=== PATIENT | male | born 1950 | race Caucasian/White ===

== ENCOUNTER → 2023-09-22 11:04 | Outpatient (CLI) | payer MEDICARE, MEDICAID, SELFPAY | PROVIDERS: Family Provider Specialist; PCP Specialist; Referring Provider Internal Medicine Pulmonary Disease; Visit Provider Internal Medicine Pulmonary Disease | DX: R06.02 Shortness of breath (principal); Z87.891 Personal history of nicotine dependence | CPT/HCPCS: 94060; 94618; 94726; 94729 ==

== ENCOUNTER → 2023-11-26 10:35 | Outpatient (CLI) | payer OTHER, MEDICAID, SELFPAY ==
--- NOTE | 2023-11-27 02:34 | DI.NM.S_ITS ---
DATE OF SERVICE: 11/26/2023 PROCEDURE: Pharmacological perfusion study. INDICATIONS: Shortness of breath with underlying hypertension, diabetes mellitus. RADIOPHARMACEUTICAL: 25.8 millicurie technetium-99m Myoview IV was injected at stress and 11.5 millicurie technetium-99m Myoview IV was injected at rest. CARDIAC STRESS: The patient underwent IV Lexiscan perfusion study under the supervision of an attending staff. The patient underwent IV Lexiscan perfusion study as per standard protocol. Remained hemodynamically stable. Baseline blood pressure 140/78. Baseline EKG, sinus rhythm. During stress, no convincing ischemic changes seen. No significant arrhythmias. Had minimal dyspnea. No chest discomfort. RAW DATA: There is significant subdiaphragmatic activity. Gut shadow encroaching the inferior border of the heart. The patient's weight is 195 pounds. GATED STUDY: Stress LV ejection fraction 62% without any obvious wall motion abnormalities. Resting end-diastolic volume 147 mL. TID ratio 0.90, which is within normal limits. Lung/heart ratio 0.46, which is mildly elevated. MYOCARDIAL PERFUSION SCAN: Please note this patient does not have any stress prone images. Resting supine and stress supine images were compared to each other. There appears to be predominantly fixed, large size, moderate to severely decreased perfusion of inferior wall extending into the inferior apex. In addition to that, resting supine images also had a small size, mildly decreased perfusion of distal anterior wall and distal anteroseptum which was not seen during stress supine images. Resting images worse than stress supine images. There are no stress prone images. CONCLUSION: 1. No obvious reversible ischemia. 2. Predominantly fixed, large size, moderate to severely decreased perfusion of inferior wall extending into the inferior apex. During rest, there is an additional small size decreased perfusion of distal anterior wall and distal anteroseptum. Rest images worse than stress supine images. There are no stress prone images. During the raw images evaluation, there is a significantly increased subdiaphragmatic activity and a gut shadow encroaching the inferior border of the heart. On gated study, preserved left ventricular function and inferior wall is moving well. Hence, most likely this is due to tissue attenuation artifact, however one cannot rule inferior wall and inferoapical infarction as well. Correlate clinically. Aric Abel PREVENTIVE MEDICINE PHYSICIAN/fn/kt doc#: [id number]/job#: [id number] dd: 11/26/2023 16:57:00 dt: 11/27/2023 02:27:00 DICTATING MD/COPIES TO: Shira Paredes MD COPIES MNE: JEROD;
== END ==
PROVIDERS: PCP Specialist; Referring Provider Internal Medicine Cardiovascular Disease; Visit Provider Internal Medicine Cardiovascular Disease
DX: R06.02 Shortness of breath (principal); R06.09 Other forms of dyspnea; E11.22 Type 2 diabetes mellitus with diabetic chronic kidney disease; N18.5 Chronic kidney disease, stage 5; Z79.4 Long term (current) use of insulin
CPT/HCPCS: 78452; 93017; A9502; J2785

== ENCOUNTER → 2024-02-12 11:34 | Outpatient (CLI) | payer OTHER, MEDICAID, SELFPAY ==
--- NOTE | 2024-02-12 11:35 | DI.MRI.S_ITS ---
PROCEDURE: MR LUMBAR SPINE WO CON INDICATIONS: Multilevel spinal stenosis with neurogenic claudication TECHNIQUE: Noncontrast sagittal T1 spin echo and T2 fast echo, sagittal STIR, and T2 fast spin echo through the lumbar spine. In cases with scoliosis, additional coronal T2 fast spin echo may be performed. COMPARISON: None. FINDINGS: Image quality: Excellent. Alignment and Curvature: There is normal bony alignment. Bone Marrow: Marrow is of normal overall signal. No acute vertebral body compression fractures. Spinal Cord: Conus medullaris terminates at the L1 level. Visualized cord demonstrates normal signal and size. Paraspinous Soft Tissues: No paravertebral masses. T12-L1: Mild disc desiccation and height loss. Moderate facet ligamentum flavum hypertrophy. No canal stenosis. Mild bilateral foraminal stenosis. L1-L2: Severe disc desiccation and height loss. Moderate facet ligamentum flavum hypertrophy. Severe canal stenosis. No foraminal narrowing. L2-L3: Mild disc desiccation and height loss. Broad-based disc bulge. Severe facet ligamentum flavum hypertrophy. Severe canal stenosis. Mild right foraminal narrowing. No left neural foraminal stenosis. L3-L4: Mild disc desiccation and height loss. Severe facet ligamentum flavum hypertrophy. Severe canal stenosis. The canal measures 3 mm at the narrowest AP diameter. Mild bilateral foraminal stenosis. L4-L5: Mild disc desiccation and height loss. Severe facet ligamentum flavum hypertrophy. Severe canal stenosis. Mild bilateral neural foraminal stenosis. L5-S1: Moderate disc desiccation and height loss. Moderate facet ligamentum flavum hypertrophy. Broad-based disc bulge. Moderate canal stenosis. Mild bilateral foraminal narrowing. IMPRESSION: 1. Multilevel severe facet ligamentum flavum hypertrophy and broad-based disc bulges with resultant severe canal stenosis at L1-2, L2-3, L3-4, and L4-5. Of note, the canal measures only 3 mm at the narrowest AP diameter at L3-4. 2. Multilevel mild bilateral foraminal stenosis. Dictated by: Zee Troncoso M.D. on 02/12/2024 at 14:04 Approved by: Zee Troncoso M.D. on 02/12/2024 at 14:13
== END ==
LOC: MRI 11:35
PROVIDERS: PCP Specialist; Referring Provider Physical Medicine & Rehabilitation; Visit Provider Physical Medicine & Rehabilitation
DX: M47.26 Other spondylosis with radiculopathy, lumbar region (principal); M47.27 Other spondylosis with radiculopathy, lumbosacral region; M51.16 Intervertebral disc disorders with radiculopathy, lumbar region; M51.17 Intervertebral disc disorders with radiculopathy, lumbosacral region; M48.061 Spinal stenosis, lumbar region without neurogenic claudication; M48.07 Spinal stenosis, lumbosacral region
CPT/HCPCS: 72148

== ENCOUNTER 2024-03-09 14:49 | Outpatient (CLI) | payer OTHER, MEDICAID, SELFPAY ==
[2024-03-09] VITALS (8 sets, daily range): BP systolic 136–150; BP diastolic 64–85; PULSE 79–800; RESP 14–22; TEMP 36.9; O2SAT 96–99
--- NOTE | 2024-03-09 15:30 | DI.RAD.S_ITS ---
PROCEDURE: PAIN L INTERLAMINAR/CAUDAL INJ INDICATIONS: L5-S1 translaminar ERICA COMPARISON: [facility], MR, MR LUMBAR SPINE WO CON, 02/12/2024, 12:03. [facility], RG, XR L-SPINE 4-6V, 01/31/2022, 10:11. FINDINGS: Fluoroscopic spot filming was performed to verify placement of spinal needles at the L5-S1 level(s), as labeled on the films. Appropriate location(s) of the needle tip(s) was confirmed by injection of iodinated contrast. IMPRESSION: Fluoroscopy for pain management. Dictated by: Mara Stoner M.D. on 03/09/2024 at 17:22 Approved by: Mara Stoner M.D. on 03/09/2024 at 17:23
[2024-03-09] MEDS: MIDAZOLAM 2 MG/2 ML VIAL IV (15:55)
[2024-03-09] MEDS: BUPIVACAINE 0.25% (PF) VIAL 2 ML INJ (15:59)
[2024-03-09] MEDS: iopamidoL 15 ML VIAL 3 ML INJ (15:59)
[2024-03-09] MEDS: BETAMETHASONE 30 MG/5 ML MDV 6 MG INJ (15:59)
[2024-03-09] MEDS: DEXAMETHASONE 10 MG/ML VIAL INJ (15:59)
--- NOTE | 2024-03-09 16:08 | P.PCN_ITS ---
Date/Time/Diagnoses Date of procedure: 03/09/24 Time of procedure: 16:08 Pre-procedure diagnosis: 1. HNP WITH RADICULAR FEATURES, 2. MULTILEVEL CENTRAL STENOSIS, Post-procedure diagnosis: same Procedure Notes Procedure: 1. FLUOROSCOPICALLY GUIDED CONTRAST CONTROLLED INTERLAMINAR EPIDURAL STEROID INJECTION - L5/S1 Indications: Aric is referred by Dr. Gonzalez for treatment of Bilateral Foraminal Stenosis L>R LE symptoms. Physician: John James Total Fluoroscopy time (seconds): 5 Total sedation minutes: 10 Complications: none Procedure in detail & Post-procedure care: FINDINGS Multilevel Central Spinal Stenosis with Nerve Root Compression DESCRIPTION OF PROCEDURE Fluoroscopically guided, contrast-controlled L5/S1 translaminar epidural steroid injection. Following review of allergy and review of potential side effects and complications, including, but not necessarily limited to, infection, allergic reaction, local tissue breakdown, temporary as well as permanent nerve injury, paralysis, stroke and possible , the patient indicated that the patient understood and agreed to proceed. An informed consent document was signed by the patient, witnessed by a nurse, and placed in the patient's chart. Additionally, other treatment options including modalities, medications, and physical therapy were reviewed with the patient. After review of previous anaesthesic history and IV conscious sedation the patient was deemed safe to proceed with today?s procedure with IV conscious sedation as ASA class II designation. Safety time-out was performed to confirm patient ID, procedure to be performed and site of procedure. IV sedation was accomplished with a combination of 2mg of Versed administered by the RN after DO order, titrated to patient comfort during the course of the procedure while the patient remained responsive to all verbal commands. In the prone position, following sterile prep and drape of the lumbar region, the L5/S1 translaminar space was identified fluoroscopically. The skin was anesthetized via a 25-gauge, 1.5-inch needle with 1% lidocaine solution. At this point, a 22-gauge short bevel spinal needle was atraumatically introduced and advanced under fluoroscopic guidance into the region of the L5/S1 translaminar space. Depth was confirmed on lateral view. Radiological data, including multiple fluoroscopic views of the lumbar spine, reveal a spinal needle at the L5/S1 translaminar space. Lateral views then show placement of the needle in the epidural space. Subsequent views show contrast material flowing superiorly and inferiorly in the epidural space. No vascular or intrathecal uptake is observed. At this point, using loss of resistance technique with saline and air, the epidural space was entered. This was confirmed following negative aspiration with injection of approximately 1.5cc of Isovue 200, showing excellent epidural flow without vascular or intrathecal uptake. At this point, 1 cc of 1% lidocain e solution combined with 2cc or 10mg of dexamethasone and 6mg of betamethasone was injected without incident. The patent tolerated the procedure without signs of symptoms of complications prior to transfer to the recovery area for further monitoring. The patient was then transferred to the recovery area where they were observed for an appropriate period of time after the injection. The patient reported a VAS score of 6 prior to the procedure and a post-procedure VAS of 0. POST OP INSTRUCTIONS The patient was provided a Pain Log to continue to record their response to the target-specific procedure prior to follow-up visit with their referring physician. Additionally, specific post-injection care instructions and a contact number to our office were provided if concerns arise regarding possible complications associated with the procedure are suspected.
== END 2024-03-09 16:28 | disposition home or self-care (01) ==
PROVIDERS: PCP Specialist; Referring Provider Physical Medicine & Rehabilitation; Visit Provider Physical Medicine & Rehabilitation
DX: M51.17 Intervertebral disc disorders with radiculopathy, lumbosacral region (principal); M48.07 Spinal stenosis, lumbosacral region
CPT/HCPCS: 62323; 99152; J0702; J1100; J2250; J3490

== ENCOUNTER 2024-05-27 12:28 | Outpatient (CLI) | payer OTHER, MEDICAID, SELFPAY ==
[2024-05-27 13:00] VITALS: BP 134/75; PULSE 91; RESP 16; TEMP 37.1; O2SAT 96
--- NOTE | 2024-05-27 13:00 | DI.RAD.S_ITS ---
PROCEDURE: PAIN L/S FACET INJ/BLK 1ST OZIEL INDICATIONS: Bilateral L3-L4 and L5 medial branch block LA COMPARISON: None. FINDINGS: Fluoroscopic spot filming was performed to verify placement of spinal needles at the bilateral L3-L5 level(s), as labeled on the films. Appropriate location(s) of the needle tip(s) was confirmed by injection of iodinated contrast. IMPRESSION: Intraoperative guidance provided. Dictated by: Alin Monreal M.D. on 05/27/2024 at 18:21 Approved by: Alin Monreal M.D. on 05/27/2024 at 18:22
[2024-05-27 13:35] VITALS: BP 162/75; PULSE 94; RESP 17; O2SAT 98
[2024-05-27 13:40] VITALS: BP 149/82; PULSE 85; RESP 15; O2SAT 99
[2024-05-27 13:45] VITALS: BP 173/92; PULSE 93; RESP 19; O2SAT 98
[2024-05-27] MEDS: iopamidoL 15 ML VIAL 3 ML INJ (13:47)
[2024-05-27] MEDS: LIDOCAINE 1% 20 ML 5 ML INJ (13:48)
[2024-05-27] MEDS: BUPIVACAINE 0.5% (PF) 10 ML VIAL 5 ML INJ (13:48)
[2024-05-27 13:50] VITALS: BP 159/89; PULSE 94; RESP 19; O2SAT 98
--- NOTE | 2024-05-27 13:56 | P.PCN_ITS ---
Date/Time/Diagnoses Date of procedure: 05/27/24 Time of procedure: 13:56 Pre-procedure diagnosis: FACET ARTHROPATHY Post-procedure diagnosis: same Procedure Notes Procedure: 1. BILATERAL L3, L4 AND L5 DIAGNOSTIC MB BLOCKS Indications: Aric is referred by Dr. Gonzalez for treatment of Bilateral Axial LBP. Physician: John James Total Fluoroscopy time (seconds): 8 Total sedation minutes: 0 Complications: none Procedure in detail & Post-procedure care: DESCRIPTION OF PROCEDURE Fluoroscopically guided, contrast-controlled bilateral L3, L4 and L5 medial branch blocks with 0.5cc of 0.5% Marcaine. Following review of allergy and review of potential side effects and complications, including, but not necessarily limited to, infection, allergic reaction, local tissue breakdown, nerve injury, paralysis, stroke and possible , the patient indicated that the patient understood and agreed to proceed. An informed consent document was signed by the patient, witnessed by a nurse, and placed in the patient's chart. After review of previous anaesthesic history and IV conscious sedation the patient was deemed safe to proceed with today's procedure with IV conscious sedation as ASA class II designation. Safety time-out was performed to confirm patient ID, procedure to be performed and site of procedure. IV sedation was not administered by the RN after DO order, titrated to patient comfort during the course of the procedure while the patient remained responsive to all verbal commands In the prone position, following sterile prep and drape of the lumbar region, the right L3, L4 and L5 anatomical location of the medial branch of the dorsal ramus was identified fluoroscopically. Subsequently an anesthetic skin wheal using 1% lidocaine solution was initiated at each of the anatomical spots. Subsequently then a 22-gauge 3.5-inch spinal needle was atraumatically introduced and advanced under fluoroscopic guidance at each of the corresponding sites at the right L3, L4 and L5 MB. After negative aspiration, 0.2cc of Isovue 200 was injected, confirming placement without vascular or intrathecal uptake. Subsequently then 0.5cc of 0.5% Marcaine solution was injected at each of the corresponding sites at the right L3, L4 and L5 medial branch locations. The identical procedure was replicated on the left. The patient tolerated the procedure well without signs or symptoms of complications. The patient tolerated the procedure well without signs or symptoms of complications prior to transfer to the recovery area continued monitoring without incident. Post-procedure, the patient was monitored initiating provocative activities to measure the amount of relief from block of the facetogenic pain. The patient reported a VAS of 7 prior to the procedure and a post-procedure VAS of 1. It has been a pleasure to assist in the diagnostic and therapeutic care of your patient. POST OP INSTRUCTIONS The patient was provided with a Pain Log to complete over the next several hours and subsequent days prior to the patient's follow up with the ordering physician. If the patient has maintenance planning clerk relief to the solution applied, then they may be a candidate for medial branch rhizotomy. The patient is aware, was provided, once again, with a Pain Log and will follow up with the referring physician for review and clinical correlation
[2024-05-27 13:57] VITALS: BP 155/75; PULSE 97; RESP 18; O2SAT 97
== END 2024-05-27 14:00 | disposition home or self-care (01) ==
PROVIDERS: PCP Specialist; Referring Provider Physical Medicine & Rehabilitation; Visit Provider Physical Medicine & Rehabilitation
DX: M47.816 Spondylosis without myelopathy or radiculopathy, lumbar region (principal)
CPT/HCPCS: 64493; 64494

== ENCOUNTER 2024-06-15 13:33 | Outpatient (CLI) | payer OTHER, MEDICAID, SELFPAY ==
[2024-06-15] VITALS (11 sets, daily range): BP systolic 122–177; BP diastolic 63–87; PULSE 83–110; RESP 16–19; TEMP 37.2; O2SAT 95–99
--- NOTE | 2024-06-15 13:45 | DI.RAD.S_ITS ---
PROCEDURE: PAIN L/S FACET INJ/BLK 1ST OZIEL INDICATIONS: SPONDYLOSIS COMPARISON: [facility], , PAIN L/S FACET INJ/BLK 1ST OZIEL, 05/27/2024, 13:42. FINDINGS: Fluoroscopic spot filming was performed to verify placement of spinal needles at the L3-L5 level(s), as labeled on the films. Appropriate location(s) of the needle tip(s) was confirmed by injection of iodinated contrast. IMPRESSION: Bilateral L3-L5 injections. Please see operative note for full details Dictated by: David Troncoso M.D. on 06/15/2024 at 16:39 Approved by: David Troncoso M.D. on 06/15/2024 at 16:39
[2024-06-15] MEDS: MIDAZOLAM 2 MG/2 ML VIAL IV ×2 (13:56→14:05)
[2024-06-15] MEDS: SODIUM CHLORIDE 0.9% 500 ML 1000 ML IV (13:56)
[2024-06-15] MEDS: LIDOCAINE 2% INJ MDV 20ML 5 ML INJ (13:59)
[2024-06-15] MEDS: iopamidoL 15 ML VIAL 3 ML INJ (13:59)
[2024-06-15] MEDS: LIDOCAINE 1% 20 ML 5 ML INJ (14:00)
--- NOTE | 2024-06-15 14:18 | PM.PROC.IR.1 ---
Date/Time/Diagnoses Date of procedure: 06/15/24 Time of procedure: 14:18 Pre-procedure diagnosis: 1. FACET ARTHROPATHY Post-procedure diagnosis: same Procedure Notes Procedure: 1. BILATERAL L3, L4 AND L5 DIAGNOSTIC MB BLOCKS Indications: Aric is referred by Dr. Gonzalez for treatment of Bilateral Axial LBP. Physician: John James Total Fluoroscopy time (seconds): 11 Total sedation minutes: 16 Complications: none Procedure in detail & Post-procedure care: DESCRIPTION OF PROCEDURE Fluoroscopically guided, contrast-controlled bilateral L3, L4 AND L5 medial branch blocks with 0.5cc of 2% Lidocaine. Following review of allergy and review of potential side effects and complications, including, but not necessarily limited to, infection, allergic reaction, local tissue breakdown, nerve injury, paralysis, stroke and possible , the patient indicated that the patient understood and agreed to proceed. An informed consent document was signed by the patient, witnessed by a nurse, and placed in the patient's chart. After review of previous anaesthesic history and IV conscious sedation the patient was deemed safe to proceed with today's procedure with IV conscious sedation as ASA class II designation. Safety time-out was performed to confirm patient ID, procedure to be performed and site of procedure. IV sedation was accomplished with a combination of 4mg of Versed was administered by the RN after DO order, titrated to patient comfort during the course of the procedure while the patient remained responsive to all verbal commands In the prone position, following sterile prep and drape of the lumbar region, the right L3, L4 and L5 anatomical location of the medial branch of the dorsal ramus was identified fluoroscopically. Subsequently an anesthetic skin wheal using 1% lidocaine solution was initiated at each of the anatomical spots. Subsequently then a 22-gauge 3.5-inch spinal needle was atraumatically introduced and advanced under fluoroscopic guidance at each of the corresponding sites at the right L3, L4 and L5 MB. After negative aspiration, 0.2cc of Isovue 200 was injected, confirming placement without vascular or intrathecal uptake. Subsequently then 0.5cc of 2% Lidocaine solution was injected at each of the corresponding sites at the right L3, L4 and L5 medial branch locations. The identical procedure was replicated on the left. The patient tolerated the procedure well without signs or symptoms of complications. The patient tolerated the procedure well without signs or symptoms of complications prior to transfer to the recovery area continued monitoring without incident. Post-procedure, the patient was monitored initiating provocative activities to measure the amount of relief from block of the facetogenic pain. The patient reported a VAS of 7 prior to the procedure and a post-procedure VAS of 1. It has been a pleasure to assist in the diagnostic and therapeutic care of your patient. POST OP INSTRUCTIONS The patient was provided with a Pain Log to complete over the next several hours and subsequent days prior to the patient's follow up with the ordering physician. If the patient has respiratory assistant relief to the solution applied, then they may be a candidate for medial branch rhizotomy. The patient is aware, was provided, once again, with a Pain Log and will follow up with the referring physician for review and clinical correlation
== END 2024-06-15 14:47 | disposition home or self-care (01) ==
PROVIDERS: PCP Specialist; Referring Provider Physical Medicine & Rehabilitation; Visit Provider Physical Medicine & Rehabilitation
DX: M47.816 Spondylosis without myelopathy or radiculopathy, lumbar region (principal)
CPT/HCPCS: 64493; 64494; 99152; J2250

== ENCOUNTER 2024-08-24 10:53 | Outpatient (CLI) | payer OTHER, MEDICAID, SELFPAY ==
[2024-08-24] VITALS (14 sets, daily range): BP systolic 114–160; BP diastolic 59–88; PULSE 83–98; RESP 12–19; TEMP 36.4; O2SAT 94–100
--- NOTE | 2024-08-24 11:15 | DI.RAD.S_ITS ---
PROCEDURE: PAIN L/S MED/LAT N RFA BILAT INDICATIONS: Bilateral L3, L4 and L5 MB RFA COMPARISON: [facility], RG, XR L-SPINE 4-6V, 01/31/2022, 10:11. FINDINGS: Fluoroscopic spot filming was performed to verify placement of spinal needles at the bilateral L3, L4, and L5 levels, as labeled on the films. Appropriate locations of the needle tips were confirmed by injection of iodinated contrast. IMPRESSION: Intraprocedural examination demonstrates appropriate needle positioning. Approved by: Nehemiah Lindsey M.D. on 08/24/2024 at 15:28
[2024-08-24] MEDS: MIDAZOLAM 2 MG/2 ML VIAL 1 MG IV (12:08)
[2024-08-24] MEDS: LIDOCAINE 1% 20 ML 5 ML INJ (12:13)
[2024-08-24] MEDS: fentaNYL 100 MCG/2 ML INJ 25 MCG IV ×2 (12:14→12:30)
[2024-08-24] MEDS: BUPIVACAINE 0.5% (PF) 10 ML VIAL 5 ML INJ (12:15)
--- NOTE | 2024-08-24 12:51 | P.PCN_ITS ---
Date/Time/Diagnoses Date of procedure: 08/24/24 Time of procedure: 12:51 Pre-procedure diagnosis: 1. RECALCITRANT FACET ARTHROPATHY Post-procedure diagnosis: same Procedure Notes Procedure: 1. BILATERAL L3, L4 AND L5 MEDIAL BRANCH RADIOFREQUENCY NEUROTOMY Indications: Aric is referred by Dr. Gonzalez for treatment of facet arthropathy. Physician: John James Total Fluoroscopy time (seconds): 18 Total sedation minutes: 38 Complications: none Procedure in detail & Post-procedure care: DESCRIPTION OF PROCEDURE Bilateral L3, L4 and L5 medial branch radiofrequency neurotomy The patient is well known to this clinic having undergone previous facet injections with good but temporary relief. The patient has experienced appropriate, concordant relief with previous facet and median branch blocks but the patient's pain has been recalcitrant to further conservative measures. Therefore, based upon the patient's relief and persistent symptoms, the patient is considered an appropriate candidate for facet rhizotomy. All of the patient's questions regarding the risks versus benefits of the procedure, including, but not limited to, bleeding, infection, temporary as well as lasting nerve injury, paralysis, stroke, and , as well treatment alternatives were answered to satisfaction. After obtaining informed consent, denial of pertinent drug allergies, as well as being made aware of the potential risks of bleeding, infection, spinal cord trauma, paralysis, temporary and permanent nerve damage, seizure, stroke, and possible , the patient was brought to the fluoroscopy suite and positioned prone on the fluoroscopy table. After review of previous anaesthesic history and IV conscious sedation the patient was deemed safe to proceed with today's procedure with IV conscious sedation as ASA class II designation. Safety time-out was performed to confirm patient ID, procedure to be performed and site of procedure. IV sedation was accomplished with a combination of 1mg of Versed and 50mcg of Fentanyl administered by the RN after DO order, titrated to patient comfort during the course of the procedure while the patient remained responsive to all verbal commands. The lumbar region was prepped in usual sterile fashion and covered with a fenestrated drape in the usual sterile fashion. Appropriate monitors applied including pulse oximeter, pulse, and blood pressure for regular monitoring throughout the procedure. After local infiltration using 1% lidocaine, under fluoroscopic guidance, a 10- cm RF insulated needle with a 10-mm active tip was positioned parallel to the junction of the right the superior articulating process where the L5 medial branch resides. Needle placement was confirmed with motor stimulation of .5v on the right which produced local stimulation without radicular component. The stimulation was then increased to 2v with, once again, only local multifidus stimulation without radicular component. The needle was then removed and the identical procedure was performed along the length of the right L4 medial branch with motor stimulation at .7v on the right. The identical procedure was once again performed along the length of the right L3 and medial branch with motor stimulation of .5v on the right. The medial branches were then anesthetised with 0.5% marcaine. This was then followed by two discreet lesions performed at 80 degrees Celsius for 90 seconds each. The identical procedures were repeated on the left. The patient tolerated the procedure well without signs or symptoms of complications prior to transfer to the recovery area continued monitoring without incident. The patient was then transferred to the recovery area where they were observed for an appropriate period of time after the injection. The patient reported a VAS score of 8 prior to the procedure and a post-procedure VAS of 1. POST OP INSTRUCTIONS The patient was provided a Pain Log to continue to record the patient's response to the target-specific procedure prior to the patient's follow-up visit with the referring physician. Additionally, specific post-injection care instructions and a contact number to our office were provided if concerns arise regarding possible complications associated with the procedure are suspected.
== END 2024-08-24 13:07 | disposition home or self-care (01) ==
LOC: RAD 10:53
PROVIDERS: PCP Specialist; Referring Provider Physical Medicine & Rehabilitation; Visit Provider Physical Medicine & Rehabilitation
DX: M47.816 Spondylosis without myelopathy or radiculopathy, lumbar region (principal)
CPT/HCPCS: 64635; 64636; 99152; 99153; J2250; J3010

== ENCOUNTER → 2024-10-04 12:28 | Outpatient (CLI) | payer OTHER, MEDICAID, SELFPAY ==
[2024-10-04 13:20] LABS: Hematocrit 27.2 % (41-53); Hemoglobin 9.4 g/dL (13.5-17.5)
[2024-10-04 14:50] LABS: Creatinine Urine Random 121.39 mg/dL
[2024-10-04 15:12] LABS: Protein (Total) Urine Random 1070 mg/dL (0-12); Protein Creatinine Ratio Urine 8.81 GRAM/24H
--- NOTE | 2024-10-04 15:36 | DI.RAD.S_ITS ---
PROCEDURE: XR CERVICAL SPINE 4V OR 5V INDICATIONS: Left UE Radiculopathy TECHNIQUE: 5 views of the cervical spine acquired. COMPARISON: None. FINDINGS: Bones: Moderate spondylotic changes. Bilateral suspected [id number] neural foraminal narrowing seen throughout the mid and lower cervical spine. Slight deformity of the C5 spinous process versus congenital bifid appearance. Soft tissues: There are vascular calcifications. No pathologic prevertebral soft tissue swelling. IMPRESSION: Moderate spondylotic changes. Suspected bilateral neural foraminal narrowing present on oblique views. Slight deformity of the C5 spinous process versus congenital bifid appearance. If there is high concern for further derangement, consider MRI evaluation. Dictated by: David Troncoso M.D. on 10/04/2024 at 17:23 Approved by: David Troncoso M.D. on 10/04/2024 at 17:25
[2024-10-04 20:50] LABS: BUN Creatinine Ratio 13.5 (6-22); Blood Urea Nitrogen 56 mg/dL (9-20); Carbon Dioxide 25 mmol/L (22-32); Chloride 105 mmol/L (98-107); Estimated Glomerular Filt Rate 15 mL/min (>60); Glucose 197 mg/dL (80-110); HEMOLYSIS < 15 (0-50); Potassium 4.9 mmol/L (3.4-5.1); Sodium 137 mmol/L (137-145)
[2024-10-06 08:37] LABS: Parathyroid Hormone Int 117 pg/mL (15-65)
== END ==
PROVIDERS: PCP Specialist; Referring Provider Student in an Organized Health Care Education/Training Program; Visit Provider Student in an Organized Health Care Education/Training Program
DX: N05.9 Unspecified nephritic syndrome with unspecified morphologic changes (principal); R80.9 Proteinuria, unspecified; D70.9 Neutropenia, unspecified; D63.1 Anemia in chronic kidney disease; N25.81 Secondary hyperparathyroidism of renal origin; M54.16 Radiculopathy, lumbar region; M43.8X2 Other specified deforming dorsopathies, cervical region
CPT/HCPCS: 36415; 72050; 80048; 82570; 83970; 84156; 85014; 85018

== ENCOUNTER → 2024-10-12 14:58 | Outpatient (CLI) | payer OTHER, MEDICAID, SELFPAY ==
--- NOTE | 2024-10-12 14:59 | DI.MRI.S_ITS ---
PROCEDURE: MR CERVICAL SPINE WO CON INDICATIONS: Left UE Radiculopathy TECHNIQUE: Noncontrast sagittal T1 spin echo and T2 fast spin echo, sagittal STIR, foraminal oblique sagittal T2 fast spin echo, and axial gradient echo or T2 fast spin echo through the cervical spine. COMPARISON: [facility], CR, XR CERVICAL SPINE 4V OR 5V, 10/04/2024, 15:49. FINDINGS: Image quality: Excellent. Alignment and Curvature: There is normal bony alignment. Bone Marrow: Marrow demonstrates normal overall signal. Multilevel facet and uncinate arthropathy. Spinal Cord: Visualized spinal cord has normal size and signal. No cerebellar tonsillar herniation. Disc: Mild multilevel disc height loss. Multilevel disc desiccation. Thickening of the posterior longitudinal ligament with moderate disc bulges at C3-C4 and C4-C5. Mild disc bulges at C5-C6, C6-C7, and C7-T1. Paraspinous Soft Tissues: Mild mural thickening of the visualized esophagus. Heterogenous and partially calcified 1.8 cm right thyroid versus parathyroid nodule (3/37). Mild diffuse muscle atrophy. C2-C3: No significant central canal stenosis. No significant foraminal stenosis. C3-C4: Combination of disc bulge and ligamentum flavum thickening resulting in severe central canal stenosis (4/7). Severe bilateral foraminal stenosis. C4-C5: Disc bulge resulting in moderate central canal stenosis. Severe bilateral foraminal stenosis. C5-C6: No significant central canal stenosis. Moderate bilateral foraminal stenosis. C6-C7: Left subarticular and foraminal disc protrusion. No significant central canal stenosis. Moderate right and severe left foraminal stenosis. C7-T1: Disc bulge effacing the ventral thecal sac resulting in mild central canal stenosis (3/40). Moderate-severe bilateral foraminal stenosis. IMPRESSION: 1. Severe C3-C4 central canal stenosis. 2. Multilevel severe foraminal stenosis. 3. 1.8 cm right thyroid versus parathyroid nodule. Nonemergent thyroid ultrasound follow-up recommended. Dictated by: James Lyles M.D. on 10/12/2024 at 21:23 Approved by: James Lyles M.D. on 10/12/2024 at 21:42
== END ==
PROVIDERS: PCP Specialist; Referring Provider Physical Medicine & Rehabilitation; Visit Provider Physical Medicine & Rehabilitation
DX: M54.12 Radiculopathy, cervical region (principal); M48.02 Spinal stenosis, cervical region
CPT/HCPCS: 72141

== ENCOUNTER 2024-11-16 14:09 | Outpatient (CLI) | payer OTHER, MEDICAID, SELFPAY ==
[2024-11-16] VITALS (8 sets, daily range): BP systolic 147–189; BP diastolic 77–89; PULSE 80–104; RESP 14–21; TEMP 36.6; O2SAT 96–100
--- NOTE | 2024-11-16 14:10 | DI.RAD.S_ITS ---
PROCEDURE: PAIN L INTERLAMINAR/CAUDAL INJ INDICATIONS: L5/S1 TL ERICA COMPARISON: [facility], , PAIN L INTERLAMINAR/CAUDAL INJ, 03/09/2024, 15:59. FINDINGS/IMPRESSION: Fluoroscopic spot filming was performed to verify placement of spinal needles at the L5-S1 level(s), as labeled on the films. Appropriate location(s) of the needle tip(s) was confirmed by injection of iodinated contrast. Dictated by: Shyam Gonzales M.D. on 11/16/2024 at 17:14 Approved by: Shyam Gonzales M.D. on 11/16/2024 at 17:15
[2024-11-16] MEDS: MIDAZOLAM 2 MG/2 ML VIAL 1 MG IV (15:32)
[2024-11-16] MEDS: BUPIVACAINE 0.25% (PF) VIAL 2 ML INJ (15:39)
[2024-11-16] MEDS: DEXAMETHASONE 10 MG/ML VIAL INJ (15:39)
[2024-11-16] MEDS: iopamidoL 15 ML VIAL 3 ML INJ (15:39)
[2024-11-16] MEDS: BETAMETHASONE 30 MG/5 ML MDV 12 MG INJ (15:40)
--- NOTE | 2024-11-16 15:53 | P.PCN_ITS ---
Date/Time/Diagnoses Date of procedure: 11/16/24 Time of procedure: 15:53 Pre-procedure diagnosis: 1. HNP WITH RADICULAR FEATURES, 2. MULTILEVEL CENTRAL STENOSIS, Post-procedure diagnosis: same Procedure Notes Procedure: 1. FLUOROSCOPICALLY GUIDED CONTRAST CONTROLLED INTERLAMINAR EPIDURAL STEROID INJECTION - L5/S1 Indications: Aric is referred by Dr. Gonzalez for treatment of Bilateral Foraminal Stenosis L>R LE symptoms. Physician: John James Total Fluoroscopy time (seconds): 7 Total sedation minutes: 11 Complications: none Procedure in detail & Post-procedure care: FINDINGS Multilevel Central Spinal Stenosis with Nerve Root Compression DESCRIPTION OF PROCEDURE Fluoroscopically guided, contrast-controlled L5/S1 translaminar epidural steroid injection. Following review of allergy and review of potential side effects and complications, including, but not necessarily limited to, infection, allergic reaction, local tissue breakdown, temporary as well as permanent nerve injury, paralysis, stroke and possible , the patient indicated that the patient understood and agreed to proceed. An informed consent document was signed by the patient, witnessed by a nurse, and placed in the patient's chart. Additionally, other treatment options including modalities, medications, and physical therapy were reviewed with the patient. After review of previous anaesthesic history and IV conscious sedation the patient was deemed safe to proceed with today?s procedure with IV conscious sedation as ASA class II designation. Safety time-out was performed to confirm patient ID, procedure to be performed and site of procedure. IV sedation was accomplished with a combination of 2mg of Versed administered by the RN after DO order, titrated to patient comfort during the course of the procedure while the patient remained responsive to all verbal commands. In the prone position, following sterile prep and drape of the lumbar region, the L5/S1 translaminar space was identified fluoroscopically. The skin was anesthetized via a 25-gauge, 1.5-inch needle with 1% lidocaine solution. At this point, a 22-gauge short bevel spinal needle was atraumatically introduced and advanced under fluoroscopic guidance into the region of the L5/S1 translaminar space. Depth was confirmed on lateral view. Radiological data, including multiple fluoroscopic views of the lumbar spine, reveal a spinal needle at the L5/S1 translaminar space. Lateral views then show placement of the needle in the epidural space. Subsequent views show contrast material flowing superiorly and inferiorly in the epidural space. No vascular or intrathecal uptake is observed. At this point, using loss of resistance technique with saline and air, the epidural space was entered. This was confirmed following negative aspiration with injection of approximately 1.5cc of Isovue 200, showing excellent epidural flow without vascular or intrathecal uptake. At this point, 1 cc of 1% lidocain e solution combined with 2cc or 10mg of dexamethasone and 6mg of betamethasone was injected without incident. The patent tolerated the procedure without signs of symptoms of complications prior to transfer to the recovery area for further monitoring. The patient was then transferred to the recovery area where they were observed for an appropriate period of time after the injection. The patient reported a VAS score of 6 prior to the procedure and a post-procedure VAS of 0. POST OP INSTRUCTIONS The patient was provided a Pain Log to continue to record their response to the target-specific procedure prior to follow-up visit with their referring physician. Additionally, specific post-injection care instructions and a contact number to our office were provided if concerns arise regarding possible complications associated with the procedure are suspected.
== END 2024-11-16 15:25 | disposition home or self-care (01) ==
PROVIDERS: PCP Specialist; Referring Provider Physical Medicine & Rehabilitation; Visit Provider Physical Medicine & Rehabilitation
DX: M51.17 Intervertebral disc disorders with radiculopathy, lumbosacral region (principal); M48.07 Spinal stenosis, lumbosacral region
CPT/HCPCS: 62323; 99152; J0702; J1100; J2250; J3490

== ENCOUNTER 2025-01-04 08:58 | Outpatient (CLI) | payer OTHER, MEDICAID, SELFPAY ==
[2025-01-04] VITALS (8 sets, daily range): BP systolic 119–145; BP diastolic 56–79; PULSE 79–90; RESP 14–18; TEMP 36.6; O2SAT 94–98
[2025-01-04] MEDS: MIDAZOLAM 2 MG/2 ML VIAL IV (10:13)
[2025-01-04] MEDS: DEXAMETHASONE 10 MG/ML VIAL 20 MG INJ (10:17)
[2025-01-04] MEDS: iopamidoL 15 ML VIAL 3 ML INJ (10:18)
[2025-01-04] MEDS: BUPIVACAINE 0.25% (PF) VIAL 2 ML INJ (10:18)
--- NOTE | 2025-01-04 10:31 | P.PCN_ITS ---
Date/Time/Diagnoses Date of procedure: 01/04/25 Time of procedure: 10:31 Pre-procedure diagnosis: 1. CERVICAL STENOSIS, 2. CERVICAL HNP WITH UPPER EXTREMITY RADICULAR FEATURES Post-procedure diagnosis: same Procedure Notes Procedure: 1. FLUORSCOPICALLY GUIDED CONTRAST CONTROLLED INTERLAMINAR EPIDURAL STEROID INJECTION - C6/7 TL ERICA Indications: Aric is referred by Dr. Gonzalez for treatment of Cervical HNP with Upper Extremity Paresthesias. Physician: John James Total Fluoroscopy time (seconds): 26 Total sedation minutes: 16 Complications: none Procedure in detail & Post-procedure care: FINDINGS Cervical Stenosis due to disc deterioration and nerve root irritation and nerve root irritation DESCRIPTION OF PROCEDURE Fluoroscopically guided, contrast-controlled C6/7 translaminar epidural steroid injection with conscious sedation. Following review of allergy and review of potential side effects and complications, including, but not necessarily limited to, infection, allergic reaction, local tissue breakdown, temporary as well as permanent nerve injury, stroke, paralysis, and possible , the patient indicated that patient understood and agreed to proceed. An informed consent document was signed by the patient, witnessed by a nurse, and placed in the patient's chart. Additionally, other treatment options including modalities, medications, and physical therapy were reviewed with the patient. After review of previous anaesthesic history and IV conscious sedation the patient was deemed safe to proceed with today?s procedure with IV conscious sedation as ASA class II designation. Safety time-out was performed to confirm patient ID, procedure to be performed and site of procedure. IV sedation was accomplished with a combination of 2mg of Versed administered by the RN after DO order, titrated to patient comfort during the course of the procedure while the patient remained responsive to all verbal commands. In the prone position, following sterile prep and drape of the cervical region, the C6/7 translaminar space was identified fluoroscopically. The skin was anesthetized via a 25-gauge 1.5-inch needle with 1% lidocaine solution. At this point, a 25-gauge, 2.5-inch short bevel spinal needle was atraumatically introduced and advanced under fluoroscopic guidance into epidural space at the C6/7 translaminar space. Depth was confirmed on lateral view. Radiological data, including multiple fluoroscopic views of the cervical spine, reveal a spinal needle at the C6/7 translaminar space. Lateral views then show placement of the needle in the epidural space. Subsequent views show contrast material flowing superiorly and inferiorly in the epidural space. DSA fluoroscopy with live contrast injection, once again, confirmed no vascular or intrathecal uptake. At this point, using loss of resistance technique with saline and air, the epidural space was entered. Following negative aspiration, injection of approximately 1.5 cc of Isovue-200 with live fluoroscopy in the AP view confirmed epidural flow in the epidural space without vascular or intrathecal uptake observed. Subsequently, a test dose of 1 cc of 1% lidocaine solution was injected and patient was observed for two minutes without signs or symptoms of complications, including abdominal pain, shortness of breath, bilateral upper or lower extremity weakness, nausea and vomiting, prior to steroid injection. At this point, 2cc or 20mg of dexamethasone was then injected without incident. The patient tolerated the procedure well without signs or symptoms of compli cations prior to being transferred to the recovery area for further monitoring, The patient was then transferred to the recovery area where they were observed for an appropriate period of time after the injection. The patient reported a VAS score of 8 prior to the procedure and a post-procedure VAS of 1. POST OP INSTRUCTIONS The patient was provided a Pain Log to continue to record their response to the target-specific procedure prior to follow-up visit with the referring provider. Additionally, specific post-injection care instructions and a contact number to our office were provided if concerns arise regarding possible complications associated with the procedure are suspected.
[2025-01-04 11:40] LABS: Creatinine Urine Random 101.05 mg/dL
[2025-01-04 12:01] LABS: Hematocrit 25.4 % (41-53); Hemoglobin 8.8 g/dL (13.5-17.5)
[2025-01-04 12:06] LABS: Protein (Total) Urine Random 1099 mg/dL (0-12); Protein Creatinine Ratio Urine 10.87 GRAM/24H
[2025-01-04 12:30] LABS: Iron 57 ug/dL (49-181)
[2025-01-04 12:32] LABS: BUN Creatinine Ratio 13.6 (6-22); Blood Urea Nitrogen 69 mg/dL (9-20); Calcium 8.6 mg/dL (8.4-10.2); Carbon Dioxide 23 mmol/L (22-32); Chloride 104 mmol/L (98-107); Estimated Glomerular Filt Rate 11 mL/min (>60); Glucose 83 mg/dL (80-110); HEMOLYSIS < 15 (0-50); Potassium 4.5 mmol/L (3.4-5.1); Sodium 137 mmol/L (137-145)
[2025-01-04 13:02] LABS: Ferritin 61 ng/mL (18-464)
== END 2025-01-04 10:51 | disposition home or self-care (01) ==
PROVIDERS: PCP Specialist; Referring Provider Physical Medicine & Rehabilitation; Visit Provider Physical Medicine & Rehabilitation
DX: D50.0 Iron deficiency anemia secondary to blood loss (chronic); M48.02 Spinal stenosis, cervical region; M50.123 Cervical disc disorder at C6-C7 level with radiculopathy; N05.9 Unspecified nephritic syndrome with unspecified morphologic changes; N25.81 Secondary hyperparathyroidism of renal origin; D70.9 Neutropenia, unspecified; D63.1 Anemia in chronic kidney disease; R80.9 Proteinuria, unspecified
CPT/HCPCS: 36415; 62321; 80048; 82570; 82728; 83540; 83970; 84156; 85014; 85018; 99152; J1100; J2250; J3490

== ENCOUNTER → 2025-02-04 10:47 | Outpatient (CLI) | payer OTHER, MEDICAID, SELFPAY ==
[2025-02-07 13:40] LABS: QuantiFERON Mitogen Value 6.57 IU/mL (.); QuantiFERON Nil Value 0.21 IU/mL (.); QuantiFERON TB Gold Plus Negative (Negative); QuantiFERON TB1 Ag Value 0.24 IU/mL (.); QuantiFERON TB2 Ag Value 0.23 IU/mL (.)
== END ==
PROVIDERS: PCP Specialist; Referring Provider Student in an Organized Health Care Education/Training Program; Visit Provider Student in an Organized Health Care Education/Training Program
DX: Z11.1 Encounter for screening for respiratory tuberculosis (principal)
CPT/HCPCS: 36415; 86480

== ENCOUNTER 2025-05-05 09:09 | Outpatient (CLI) | payer OTHER, MEDICAID, SELFPAY ==
[2025-05-05] VITALS (9 sets, daily range): BP systolic 128–177; BP diastolic 63–81; PULSE 56–94; RESP 10–16; TEMP 36.2; O2SAT 96–100
[2025-05-05] MEDS: MIDAZOLAM 2 MG/2 ML VIAL IV ×2 (10:31→10:38)
[2025-05-05] MEDS: DEXAMETHASONE 10 MG/ML VIAL 30 MG INJ (10:41)
[2025-05-05] MEDS: BUPIVACAINE 0.25% (PF) VIAL 2 ML INJ (10:42)
--- NOTE | 2025-05-05 10:51 | P.PCN_ITS ---
Date/Time/Diagnoses Date of procedure: 05/05/25 Time of procedure: 10:52 Pre-procedure diagnosis: 1. CERVICAL STENOSIS, 2. CERVICAL HNP WITH UPPER EXTREMITY RADICULAR FEATURES Post-procedure diagnosis: same Procedure Notes Procedure: 1. FLUORSCOPICALLY GUIDED CONTRAST CONTROLLED INTERLAMINAR EPIDURAL STEROID INJECTION - C6/7 TL ERICA Indications: Aric is referred by Dr. Gonzalez for treatment of Cervical HNP with Upper Extremity Paresthesias. Physician: John James Total Fluoroscopy time (seconds): 22 Total sedation minutes: 15 Complications: none Procedure in detail & Post-procedure care: FINDINGS Cervical Stenosis due to disc deterioration and nerve root irritation and nerve root irritation DESCRIPTION OF PROCEDURE Fluoroscopically guided, contrast-controlled C6/7 translaminar epidural steroid injection with conscious sedation. Following review of allergy and review of potential side effects and complications, including, but not necessarily limited to, infection, allergic reaction, local tissue breakdown, temporary as well as permanent nerve injury, stroke, paralysis, and possible , the patient indicated that patient understood and agreed to proceed. An informed consent document was signed by the patient, witnessed by a nurse, and placed in the patient's chart. Additionally, other treatment options including modalities, medications, and physical therapy were reviewed with the patient. After review of previous anaesthesic history and IV conscious sedation the patient was deemed safe to proceed with today?s procedure with IV conscious sedation as ASA class II designation. Safety time-out was performed to confirm patient ID, procedure to be performed and site of procedure. IV sedation was accomplished with a combination of 4mg of Versed administered by the RN after DO order, titrated to patient comfort during the course of the procedure while the patient remained responsive to all verbal commands. In the prone position, following sterile prep and drape of the cervical region, the C6/7 translaminar space was identified fluoroscopically. The skin was anesthetized via a 25-gauge 1.5-inch needle with 1% lidocaine solution. At this point, a 25-gauge, 2.5-inch short bevel spinal needle was atraumatically introduced and advanced under fluoroscopic guidance into epidural space at the C6/7 translaminar space. Depth was confirmed on lateral view. Radiological data, including multiple fluoroscopic views of the cervical spine, reveal a spinal needle at the C6/7 translaminar space. Lateral views then show placement of the needle in the epidural space. Subsequent views show contrast material flowing superiorly and inferiorly in the epidural space. DSA fluoroscopy with live contrast injection, once again, confirmed no vascular or intrathecal uptake. At this point, using loss of resistance technique with saline and air, the epidural space was entered. Following negative aspiration, injection of approximately 1.5 cc of Isovue-200 with live fluoroscopy in the AP view confirmed epidural flow in the epidural space without vascular or intrathecal uptake observed. Subsequently, a test dose of 1 cc of 1% lidocaine solution was injected and patient was observed for two minutes without signs or symptoms of complications, including abdominal pain, shortness of breath, bilateral upper or lower extremity weakness, nausea and vomiting, prior to steroid injection. At this point, 3cc or 30mg of dexamethasone was then injected without incident. The patient tolerated the procedure well without signs or symptoms of compli cations prior to being transferred to the recovery area for further monitoring, The patient was then transferred to the recovery area where they were observed for an appropriate period of time after the injection. The patient reported a VAS score of 6 prior to the procedure and a post-procedure VAS of 0. POST OP INSTRUCTIONS The patient was provided a Pain Log to continue to record their response to the target-specific procedure prior to follow-up visit with the referring provider. Additionally, specific post-injection care instructions and a contact number to our office were provided if concerns arise regarding possible complications associated with the procedure are suspected.
== END 2025-05-05 11:10 | disposition home or self-care (01) ==
LOC: RAD 09:10
PROVIDERS: PCP Specialist; Referring Provider Physical Medicine & Rehabilitation; Visit Provider Physical Medicine & Rehabilitation
DX: M48.02 Spinal stenosis, cervical region (principal); M50.123 Cervical disc disorder at C6-C7 level with radiculopathy
CPT/HCPCS: 62321; 99152; J1100; J2250

== ENCOUNTER → 2025-08-29 10:21 | Outpatient (CLI) | payer OTHER, MEDICAID, SELFPAY ==
[2025-08-29 11:16] LABS: HEMOLYSIS < 15 (0-50); Potassium 3.7 mmol/L (3.4-5.1)
== END ==
PROVIDERS: PCP Specialist; Referring Provider Student in an Organized Health Care Education/Training Program; Visit Provider Student in an Organized Health Care Education/Training Program
DX: E87.5 Hyperkalemia (principal)
CPT/HCPCS: 36415; 84132